=== PATIENT | female | born 1935 | race Caucasian/White ===

== ENCOUNTER 2024-08-04 16:34 | Emergency (ER) | payer MEDICARE ==
[~2024-08-04] VITALS: Ht 152.4 cm; Wt 77.1 kg
[2024-08-04] MEDS ORDERED: TDAP DIPH,PERTUSS,TET VAC/PF 0.5 ML DISP.SYRIN IM ONE (17:14)
[2024-08-04] MEDS: TDAP DIPH,PERTUSS,TET VAC/PF 0.5 ML DISP.SYRIN IM ONE (17:23)
[2024-08-04 19:48] VITALS: BP 134/64; TEMP 97.8; O2SAT 98
== END 2024-08-04 19:47 | disposition home or self-care (01) ==
LOC: EDSEX 16:34 → ER 16:34
DX: S01.01XA Laceration without foreign body of scalp, initial encounter (principal); R51.9 Headache, unspecified; I10 Essential (primary) hypertension; Z88.1 Allergy status to other antibiotic agents; W18.39XA Other fall on same level, initial encounter; Y93.89 Activity, other specified; Y92.89 Other specified places as the place of occurrence of the external cause; Y99.8 Other external cause status
CPT/HCPCS: 70450; 72125; 90715; A4606; A4663